=== PATIENT | female | born 1990 | race Caucasian/White ===

== ENCOUNTER 2018-02-15 05:38 | Inpatient (IN) | payer OTHER ==
[~2018-02-15] VITALS: Ht 157.5 cm; Wt 81.2 kg
[2018-02-15] MEDS ORDERED: BUPIVACAINE-MPF 0.25% 30 ML VIAL INJ ONE (07:22)
[2018-02-15] MEDS ORDERED: BUPIVACAINE-MPF 0.5% 30 ML VIAL INJ ONE (07:32)
[2018-02-15] MEDS ORDERED: DESFLURANE 240 ML BTL INH ONE (07:43)
[2018-02-15] MEDS ORDERED: PROPOFOL 200 MG/20 ML VIAL IV ONE (07:43)
[2018-02-15] MEDS ORDERED: DEXAMETHASONE 4 MG/ML VIAL IVP ONE (07:43)
[2018-02-15] MEDS ORDERED: ROCURONIUM 50 MG/5 ML VIAL IV ONE (07:43)
[2018-02-15] MEDS ORDERED: fentaNYL 0.05 MG/ML VIAL ONE (07:47)
[2018-02-15] MEDS ORDERED: HYDROmorphone PFS 2 MG/ML SYR ONE ×2 (07:47→08:56)
[2018-02-15] MEDS ORDERED: ONDANSETRON 4 MG/2 ML VIAL IVP PRN (08:40)
[2018-02-15] MEDS: HYDROmorphone 1 MG/ML AMP IVP PRN ×4 (08:58→09:31)
[2018-02-15 09:50] VITALS: BP 131/77
--- NOTE | 2018-02-15 09:50 | NUR ---
PATIENT ARRIVED VIA BED ACCOMPANIED BY THREE O.R. NURSES. PATIENT IS A&OX4 AT THIS TIME. PATIENT PRESENTS IN SUPINE POSITION. PATIENT SHOWS NO SIGNS OF RESPIRATORY DISTRESS OR RESPIRATORY DEPRESSION. RECEIVED REPORT FROM O.R. NURSE SHAY. PATIENT'S VITAL SIGNS ARE WITHIN NORMAL LIMITS. 98.0 TEMP, 131/77, 71, 95%, 18 RR. PATIENT DRESSING ON HER ABDOMEN ARE DRY AND INTACT. LOWERED PATIENTS BED TO LOWEST SETTING. UPDATED BOARD IN PATIENTS ROOM. WILL CONTINUE TO MONITOR PATIENT.
--- NOTE | 2018-02-15 11:02 | NUR ---
PATIENT ASLEEP AT THIS TIME. PATIENT'S FAMILY MEMBERS AT BEDSIDE. NO SIGNS OF RESPIRATORY DISTRESS OR RESPIRATORY DEPRESSION. WILL CONTINUE TO MONITOR PATIENT .
[2018-02-15] MEDS: MORPHINE SULFATE 4 MG/ML SYR IM/IVP PRN ×3 (11:30→21:26)
--- NOTE | 2018-02-15 12:34 | NUR ---
CM NOTE INITIAL REVIEW FAXED TO [facility] [phone] ANNABEL # [phone]
--- NOTE | 2018-02-15 13:35 | NUR ---
PATIENT ASLEEP. VITAL SIGNS ARE STABLE. WILL CONTINUE TO MONITOR PATIENT.
--- NOTE | 2018-02-15 15:26 | NUR ---
PATIENT RESTING IN BED AT THIS TIME. PATIENT HAS A WET CLOTH OVER HER FOREHEAD. PATIENT SAYS SHE FEELS NAUSEOUS AND HAS PAIN. WILL ADMINISTER MEDICATIONS.
[2018-02-15] MEDS: ONDANSETRON 4 MG/2 ML VIAL IVP PRN ×2 (15:39→21:23)
--- NOTE | 2018-02-15 15:39 | NUR ---
PATIENT FEELS NAUSEOUS. GAVE PATIENT ZOFRAN VIA IV. PATIENT TOLERATED WELL.
[2018-02-15 16:00] VITALS: BP 112/89
--- NOTE | 2018-02-15 17:00 | NUR ---
PATIENT AWAKE AT THIS TIME. NO COMPLAINTS OF PAIN. NO SIGNS OF RESPIRATORY DISTRESS OR RESPIRATORY DEPRESSION. WILL CONTINUE TO MONITOR PATIENT.
--- NOTE | 2018-02-15 19:19 | NUR ---
GAVE REPORT TO NIGHTSHIFT NURSE AT BEDSIDE. PATIENT IN STABLE CONDITION.
[2018-02-15 20:20] VITALS: BP 135/95
--- NOTE | 2018-02-15 20:20 | NUR ---
SEEN PT AWAKE, ALERT ORIENTED ON HER CELLPHONE FIGHTING BUT HANG UP RIGHT NOW. INITIAL ASSESSMENT DONE. ABDOMINAL INCISION CLEAN,DRY&INTACT. ZAYAS CATHETER IN PLACED DRAINING DARK YELLOW URINE W/ DARK BLOOD-TINGED.VITAL SIGNS CHECKED. PT COMPLAINING OF ABD INCISION PAIN. WILL MEDICATE FOR PAIN ORDERED. SAFETY REINFORCED. CALL LIGHT W/IN REACH.
--- NOTE | 2018-02-15 21:26 | NUR ---
PT MEDICATED W/ ZOFRAN IV FOLLOWED BY MORPHINE ORDERED. PT ASKING FOR FAN BECAUSE SHE SAID SHE FEELS HOT. TOP SHEET REMOVED. WILL CHECK IF THERE'S AVAILABLE FAN. PT VERBALIZED UNDERSTANDING.
--- NOTE | 2018-02-15 22:10 | NUR ---
PT STATES SHE WANTS TO BURP BUT CAN'T DO IT. EXPLAINED TO PT THAT SHE NEEDS TO MOVE IN ORDER FOR HER TO BURP. PT GIVEN PILLOW TO HUG TO HELP HER INCISIONAL PAIN WHEN SHE TURN. ASSISTED PT TO TURN ON HER RIGHT SIDE. PILLOW PLACED ON HER BACK. PT STARTS TO BURP. PT FELT RELIEVED. WILL CONTINUE TO MONITOR.
--- NOTE | 2018-02-16 00:10 | NUR ---
SEEN PT SLEEPING COMFORTABLY. WILL CONTINUE TO MONITOR. CALL LIGHT W/IN REACH.
[2018-02-16 04:00] VITALS: BP 147/82
--- NOTE | 2018-02-16 04:00 | NUR ---
SEEN PT ASLEEP. VITAL SIGNS CHECKED. PT NO TIN ANY DISTRESS.
--- NOTE | 2018-02-16 07:00 | NUR ---
ZAYAS CATH REMOVED. PT TOLERATED IT. PERICARE RENDERED. ENCOURAGED PT TO BE OOB TODAY. PT VERBALIZED UNDERSTANDING.
[2018-02-16 07:09] LABS: BASOPHILS % (AUTO) 0.1 % (0.0-2.0); EOSINOPHILS % (AUTO) 0.1 % (0.0-4.0); HEMATOCRIT 28.4 % (36-48); HEMOGLOBIN 9.5 g/dL (12.0-16.0); MEAN CORPUSCULAR HEMOGLOBIN 29 pg (27-31); MEAN CORPUSCULAR HGB CONC 33 g/dL (33-37); MEAN CORPUSCULAR VOLUME 85.6 fL (80-94); MONOCYTES # (AUTO) 1.3 K/uL (0.8-1.0); MONOCYTES % (AUTO) 9.4 % (1.7-9.3); NEUTROPHILS # (AUTO) 10.3 K/uL (1.8-7.7); NEUTROPHILS % (AUTO) 75.4 % (42.2-75.2); PLATELET COUNT (AUTO) 266 K/uL (140-450); RED BLOOD CELL COUNT(AUTO) 3.32 MIL/uL (4.20-5.40); RED CELL DISTRIBUTION WIDTH 13.5 % (11.6-13.7); WHITE BLOOD COUNT (AUTO) 13.6 K/uL (4.8-10.8)
--- NOTE | 2018-02-16 07:15 | NUR ---
PT REPORT GIVEN TO DAYSHIFT NURSE.
--- NOTE | 2018-02-16 07:16 | NUR ---
RECEIVED REPORT FROM PELLET MACHINE OPERATOR NURSE AT BEDSIDE FOR CONTINUITY OF CARE. PATIENT RESTING IN BED, AROUSABLE. AOX4. BREATHING EVEN AND UNLABORED ON ROOM AIR. PATIENT C/O OF ABD PAIN, WILL ASSESS AND MEDICATE. IV TO L AC 20G, ASYMPTOMATIC, INTACT, AND PATENT, SALINE LOCKED. PATIENT ABLE TO AMBULATE. PT IS S/P HYSTERECTOMY 02/15/18, HAS ABDOMINAL INCISION COVERED BY ABD DRESSING, DRESSING DRY AND INTACT, NO SIGNS OF DISTRESS AT THIS TIME. SAFETY PRECAUTION IN PLACE, BED ON LOWEST SETTING, CALL LIGHT WITHIN REACH. WILL CONTINUE TO MONITOR PATIENT.
[2018-02-16 08:00] VITALS: BP 149/84
[2018-02-16] MEDS: ONDANSETRON 4 MG/2 ML VIAL IVP PRN ×2 (08:08→15:43)
[2018-02-16] MEDS: MORPHINE SULFATE 4 MG/ML SYR IM/IVP PRN ×3 (08:09→21:31)
--- NOTE | 2018-02-16 08:09 | NUR ---
PATIENT MEDICATED FOR ABD PAIN. ZOFRAN IVP PRN ALSO GIVEN PROPHYLAXIS. PATIENT TOLERATED THEM WELL. PATIENT NOW RESTING IN BED USING HER CELL PHONE. NO SIGNS OF DISTRESS NOTED. PATIENT MEDICATED FOR PAIN. SAFETY PRECAUTION IN PLACE, BED ALARM ON, BED IN LOWEST SETTING, CALL LIGHT WITHIN REACH, WILL CONTINUE TO MONITOR PATIENT.
--- NOTE | 2018-02-16 10:05 | NUR ---
PATIENT AMBULATED TO BATHROOM AND VOIDED. PATIENT NOW RESTING IN BED, NO SIGNS OF DISTRESS NOTED. PATIENT'S PAIN IS "TOLERABLE" AT THIS TIME. SAFETY PRECAUTION IN PLACE, BED ALARM ON, BED IN LOWEST SETTING, CALL LIGHT WITHIN REACH, WILL CONTINUE TO MONITOR PATIENT.
--- NOTE | 2018-02-16 10:32 | NUR ---
DUE TO CHANGE IN PABLO SCORE PATIENT HAS BEEN RESCREENED AND CATEGORIZED MODERATE RISK. PATIENT WILL BE SEEN WITHIN 3-5 DAYS OF TODAY. 02/17/18- 02/19/[address]
--- NOTE | 2018-02-16 12:45 | NUR ---
PATIENT RESTING IN BED, FRIEND AT BEDSIDE. NO SIGNS OF DISTRESS NOTED. PATIENT C/O PAIN BUT STATES THAT IT IS "TOLERABLE", DOES NOT NEED PAIN MEDICATION AT THIS TIME. SAFETY PRECAUTION IN PLACE, BED ALARM ON, BED IN LOWEST SETTING, CALL LIGHT WITHIN REACH, WILL CONTINUE TO MONITOR PATIENT.
--- NOTE | 2018-02-16 13:24 | NUR ---
PATIENT RESTING IN BED, NO SIGNS OF DISTRESS NOTED. PATIENT'S PAIN IS "TOLERABLE" AT THIS TIME. OFFERED PAIN MEDICATION AND ENCOURAGE PATIENT TO AMBULATE. PATIENT STATED THAT SHE WILL "ACCEPT PAIN MEDICATION AND TRY TO WALK WHEN HER SISTER GETS HERE". SAFETY PRECAUTION IN PLACE, BED ALARM ON, BED IN LOWEST SETTING, CALL LIGHT WITHIN REACH, WILL CONTINUE TO MONITOR PATIENT.
--- NOTE | 2018-02-16 14:01 | NUR ---
CM NOTE CONCURRENT REVIEW FAXED TO [facility] [phone] ANNABEL # [phone]
--- NOTE | 2018-02-16 15:50 | NUR ---
PATIENT MEDICATED FOR ABD PAIN. ZOFRAN IVP PRN ALSO GIVEN PROPHYLAXIS. PATIENT TOLERATED THEM WELL. PATIENT NOW RESTING IN BED. NO SIGNS OF DISTRESS NOTED. PATIENT MEDICATED FOR PAIN. SAFETY PRECAUTION IN PLACE, BED ALARM ON, BED IN LOWEST SETTING, CALL LIGHT WITHIN REACH, WILL CONTINUE TO MONITOR PATIENT.
[2018-02-16 16:00] VITALS: BP 139/83
--- NOTE | 2018-02-16 16:15 | NUR ---
PATIENT AMBULATED TO BATHROOM WITH STANDBY ASSIST FROM RITCHIE GABRIEL. PATIENT VOIDED, URINE WAS CLEAR AND YELLOW, NO HEMATURIA. PATIENT STATES THAT SHE HAS HAD GAS, AND HAS BEEN USING HER INCENTIVE SPIROMETER. SAFETY PRECAUTION IN PLACE, CALL LIGHT WITHIN REACH, WILL CONTINUE TO MONITOR PATIENT.
--- NOTE | 2018-02-16 17:45 | NUR ---
PATIENT RESTING IN BED, FAMILY AND FRIENDS AT BEDSIDE. NO SIGNS OF DISTRESS NOTED, PATIENT MEDICATED FOR PAIN, BREATHING EVEN AND UNLABORED ON ROOM AIR, SAFETY PRECAUTION IN PLACE, CALL LIGHT WITHIN REACH, WILL CONTINUE TO MONITOR PATIENT.
--- NOTE | 2018-02-16 19:28 | NUR ---
PATIENT REPORT GIVEN TO BONDING SUPERVISOR NURSE AT BEDSIDE FOR CONTINUITY OF CARE. PATIENT IN STABLE CONDITION.
--- NOTE | 2018-02-16 19:29 | NUR ---
RECD. RESTING IN BED, AWAKE, A/OX4. RESPIRATION EVEN AND UNLABORED, IV SALINE LOCK AT THE LEFT AC G 20, PATENT AND INTACT. INCISION IN THE ABDOMEN, COVERED WITH DRESSING, DRY AND INTACT, WITH ABDOMINAL BINDER. ON BILATERAL LEG SEQUENTIALS. AMBULATING TO BR. TOLERATING LIQUID DIET. NOT PASSING GAS, ADVICE TO AMBULATE MORE. VOIDING WELL. PLAN OF CARE FOR THE SHIFT DISCUSSED. VERBALIZED UNDERSTANDING. PAIN IN THE ABDOMEN 11/09, WAS MEDICATED BY AM NURSE. FAMILY AT THE BEDSIDE.
[2018-02-16 20:00] VITALS: BP 125/77
--- NOTE | 2018-02-16 20:00 | NUR ---
PLAN OF CARE DISCUSSED WITH ANANYA FOR CONTINUITY OF CARE. WILL CONTINUE TO MONITOR.
--- NOTE | 2018-02-16 20:15 | NUR ---
HAD HAIR SHAMPOO AND SPONGE BATH BY SISTER. BEDDINGS CHANGED BY LOCKSTITCH SLEEVE MAKER. STATED FEELING REFRESH AND BETTER.
--- NOTE | 2018-02-16 21:30 | NUR ---
IV INFILTRATED, NEW IV LINE INSERTED BY CHARGE NURSE KEYLA, RIGHT FOREARM G22.
[2018-02-17] MEDS: ACETAMINOPHEN/CODEINE 300/30MG 1 TAB PO PRN ×2 (01:34→14:15)
[2018-02-17 01:37] VITALS: BP 148/76
--- NOTE | 2018-02-17 04:00 | NUR ---
WOKE UP EARLY, STANDING NEAR SINK BRUSHING TEETH.
--- NOTE | 2018-02-17 07:15 | NUR ---
CONDITION REMAIN STABLE. ENDORSED TO AM NURSE FOR CONTINUITY OF CARE.
--- NOTE | 2018-02-17 07:16 | NUR ---
RECEIVED REPORT FROM CNC MILLING MACHINIST NURSE AT BEDSIDE FOR CONTINUITY OF CARE. PATIENT RESTING IN BED, AROUSABLE. AOX4. BREATHING EVEN AND UNLABORED ON ROOM AIR. PATIENT C/O OF ABD PAIN, BUT REFUSED PAIN AT THIS TIME. IV TO R FA 22G, ASYMPTOMATIC, INTACT, AND PATENT, SALINE LOCKED. PATIENT ABLE TO AMBULATE. PT IS S/P HYSTERECTOMY 02/15/18, HAS ABDOMINAL INCISION COVERED BY ABD DRESSING, AND ABDOMINAL BINDER. DRESSING DRY AND INTACT, NO SIGNS OF DISTRESS AT THIS TIME. SAFETY PRECAUTION IN PLACE, BED ON LOWEST SETTING, CALL LIGHT WITHIN REACH. WILL CONTINUE TO MONITOR PATIENT.
[2018-02-17 08:00] VITALS: BP 135/78
--- NOTE | 2018-02-17 09:34 | NUR ---
DR. SAHNI IN TO SEE THE PATIENT. WILL AWAIT FOR HIS UPDATED ORDERS.
--- NOTE | 2018-02-17 11:40 | NUR ---
NEW ORDER TO REINSERT ZAYAS CATHETER. ZAYAS CATHETER INSERTED, PATIENT TOLERATED IT WELL. PATIENT NOW RESTING IN BED. NEW ORDER OF REGULAR DIET ALSO IN, PATIENT DRINKING COFFEE AND WAITING FOR LUNCH.
--- NOTE | 2018-02-17 12:10 | NUR ---
ZAYAS BAG EMPTIED, 450 ML OF CLEAR YELLOW URINE. PATIENT RESTING IN BED, WAITING FOR LUNCH. NO SIGN OF DISTRESS OR SOB NOTED ON ROOM AIR, PATIENT DENIES PAIN AT THIS TIME. SAFETY PRECAUTION IN PLACE, CALL LIGHT WITHIN REACH. WILL CONTINUE TO MONITOR PATIENT.
--- NOTE | 2018-02-17 12:43 | NUR ---
XRAY HERE TO TAKE PATIENT TO RADIOLOGY FOR CYSTOGRAM. ZAYAS BAG EMPTIED OF 400 ML OF CLEAR YELLOW URINE. PATIENT NOW OFF FLOOR TO RADIOLOGY.
--- NOTE | 2018-02-17 14:15 | NUR ---
PATIENT OFF FLOOR AND LUNCH TRAY TAKEN AWAY. DIETARY CALLED FOR REGULAR MEAL OPTIONS, PATIENT DECIDED TO NOT EAT LUNCH, REQUESTED A TYLENOL D/T HER 02/07 HEADACHE. PATIENT MEDICATED FOR PAIN. PATIENT STATED THAT SHE NOW WANTED TO "REST AND SLEEP". SAFETY PRECAUTION IN PLACE, CALL LIGHT WITHIN REACH, WILL CONTINUE TO MONITOR PATIENT.
--- NOTE | 2018-02-17 14:24 | NUR ---
CM NOTE CONCURRENT REVIEW FAXED TO [facility] [phone] ANNABEL # [phone]
[2018-02-17 16:00] VITALS: BP 133/81
--- NOTE | 2018-02-17 17:30 | NUR ---
DR. SAHNI IN TO SEE THE PATIENT. PLAN IS TO DISCHARGE TOMORROW IN AM WITH LEG BAG FOR [facility], AND TO FOLLOW UP WITH DR. SAHNI IN HIS OFFICE IN 1 WEEKS. PATIENT VERBALIZED UNDERSTANDING. MOTHER AT BEDSIDE. PATIENT DENIES PAIN, STATED THAT SINCE HER MOTHER GAVE HER A MASSAGE ON HER RIGHT SHOULDER AND NECK, HER PAIN LEVEL HAS DECREASED. NO SIGN OF DISTRESS OR SOB NOTED. VITAL SIGNS WITHIN NORMAL LIMITS. SAFETY PRECAUTION IN PLACE, CALL LIGHT WITHIN REACH, WILL CONTINUE TO MONITOR PATIENT.
--- NOTE | 2018-02-17 19:10 | NUR ---
RECEIVED REPORT AT BEDSIDE FOR CONTINUITY OF CARE. PATIENT AWAKE, ALERT AND ORIENTED. BREATHING EVEN AND UNLABORED ON ROOM AIR. NO C/O PAIN AT THIS TIME. IV TO R FA 22G, ASYMPTOMATIC, INTACT, AND PATENT, SALINE LOCKED. PATIENT ABLE TO AMBULATE. PT IS S/P HYSTERECTOMY 02/15/18, HAS ABDOMINAL INCISION COVERED BY ABD DRESSING, AND ABDOMINAL BINDER. DRESSING DRY AND INTACT. ZAYAS CATHETER IN PLACE, DRAINING CLEAR YELLOW URINE. NO SIGNS OF DISTRESS AT THIS TIME. SAFETY PRECAUTION IN PLACE, BED ON LOWEST SETTING, CALL LIGHT WITHIN REACH. WILL CONTINUE TO MONITOR PATIENT.
--- NOTE | 2018-02-17 19:23 | NUR ---
REPORT GIVEN TO HIGH SCHOOL FOREIGN LANGUAGE TUTOR NURSE AT BEDSIDE FOR CONTINUITY OF CARE. MOTHER AT BEDSIDE. PATIENT IN STABLE CONDITION.
[2018-02-17 20:00] VITALS: BP 116/70
--- NOTE | 2018-02-18 00:34 | NUR ---
PATIENT ASLEEP IN BED. NO S/S OF DISTRESS NOTED
[2018-02-18] MEDS: ACETAMINOPHEN/CODEINE 300/30MG 1 TAB PO PRN (03:11)
[2018-02-18 04:00] VITALS: BP 125/81
--- NOTE | 2018-02-18 07:27 | NUR ---
PATIENT REPORT GIVEN AT BEDSIDE. PATIENT ENDORSED IN STABLE CONDITION
--- NOTE | 2018-02-18 07:28 | NUR ---
RECEIVED REPORT FROM TUNE UP MECHANIC NURSE STEPHANIE AT BEDSIDE FOR CONTINUITY OF CARE. PT IS AWAKE AND ORIENTED X4. INTRODUCED SELF AND UPDATED BOARD. PT WITH ZAYAS CATHETER IN PLACE. DENIES PAIN. NO SIGNS OF DISTRESS. AWARE FOR D/C TODAY. STATED MOM WILL COME DELIVERY NURSE AT 10AM. SITTING UP IN BED EATING BREAKFAST ON REGULAR DIET. BED IN LOW POSITION, CALL LIGHT WITHIN REACH. WILL CONTINUE TO MONITOR.
[2018-02-18 08:00] VITALS: BP 109/73
--- NOTE | 2018-02-18 10:00 | NUR ---
PT D/C TO GO HOME. GAVE D/C FORMS, INSTRUCTIONS, FOLLOW UP APPOINTMENT AND LABS. PT VERBALIZED UNDERSTANDING AND SIGNED FORMS. CHANGED ZAYAS TO LEG BAG. TAUGHT PT HOW TO DRAIN BAG. PT VERBALIZED TEACHING. INCISIONS ON ABD WITH NO DRAINAGE. DAVID INTACT. REMOVED IV TO R FA 22G. IV CATHETER TIP INTACT. APPLIED DRESSING AND PRESSURE TO SITE, NO BLEEDING NOTED. REMOVED ID BAND. PT CHANGED IN OWN CLOTHES AND LEFT WITH ALL PERSONAL BELONGINGS. PT LEFT UNIT VIA WHEELCHAIR ACCOMPANIED BY STUDENT RN AND PT'S MOM. PT LEFT IN STABLE CONDITION.
== END 2018-02-18 10:00 | disposition home or self-care (01) | DRG 513 ==
LOC: MMU 05:38 → MTU 09:50
PROVIDERS: ADMIT Obstetrics & Gynecology; ATTEND Obstetrics & Gynecology
PROC: 0UT90ZL Resection of Uterus, Supracervical, Open Approach (ICD-10-PCS; principal; 2018-02-15 07:30)
DX: N80.9 Endometriosis, unspecified (principal); E66.9 Obesity, unspecified; G89.29 Other chronic pain; N73.6 Female pelvic peritoneal adhesions (postinfective); Z97.5 Presence of (intrauterine) contraceptive device; Z88.6 Allergy status to analgesic agent; Z90.710 Acquired absence of both cervix and uterus; N92.1 Excessive and frequent menstruation with irregular cycle; Z68.32 Body mass index [BMI] 32.0-32.9, adult
CPT/HCPCS: 36415; 71045; 73020; 74430; 85025; 86886; 86900; 86901; 87081; J0690; J1100; J1170; J2270; J2405; J2704; J3010; J3490; J7060; J7120; Q0092